=== PATIENT | female | born 1950 ===

== ENCOUNTER 2021-11-12 06:35 | Day surgery (SDC) | payer OTHER ==
[~2021-11-12 06:35] MED LIST: COZAAR100 MG PO; TENORMIN50 M1 PO
[2021-11-12] MEDS ORDERED: PERCOCET 5-3251 EACH PO (10:04)
== END 2021-11-12 14:15 | disposition home or self-care (01) ==
LOC: CIR.AMB 06:35 → EDBD 09:00 → CIR.AMB 14:15
PROVIDERS: ATTEND Surgery
DX: D35.1 Benign neoplasm of parathyroid gland (principal); E21.0 Primary hyperparathyroidism; Z87.891 Personal history of nicotine dependence; R73.03 Prediabetes